=== PATIENT | male | born 1980 | race American Indian/Alaskan Native ===

== ENCOUNTER 2016-07-28 18:25 | Emergency (ER) | payer MEDICARE ==
[2016-07-28 20:51] LABS: Urine Drugs of Abuse Note Disclamer
[2016-07-28 21:02] LABS: Basophils % (Auto) 0.2 % (0.0-1.8); Eosinophils % (Auto) 0.1 % (0.0-4.3); Hematocrit 45.2 % (35.5-45.6); Mean Corpuscular HGB Conc 33 % (32-34); Mean Corpuscular Hemoglobin 29 pg (28-32); Mean Corpuscular Volume 86 fl (84-94); Platelet Count 285 K/mm3 (140-440); Red Blood Count 5.24 M/mm3 (3.65-5.03); Red Cell Distribution Width 13.8 % (13.2-15.2); White Blood Count 13.7 K/mm3 (4.5-11.0)
[2016-07-28 21:08] LABS: Bilirubin,Urine NEG (Negative); Blood,Urine NEG (Negative); Ketones,Urine TR mg/dL (Negative); Leukocyte Esterase,Urine NEG (Negative); Mucus,Urine 3+ /HPF; Nitrite,Urine NEG (Negative)
[2016-07-28 21:23] LABS: Anion Gap 19 mmol/L; BUN/Creatinine Ratio 8.46; Blood Urea Nitrogen 11 mg/dL (9-20); Calcium 9.7 mg/dL (8.4-10.2); Carbon Dioxide 26 mmol/L (22-30); Chloride 100.8 mmol/L (98-107); Glucose 88 mg/dL (75-100); Potassium 4.4 mmol/L (3.6-5.0); Sodium 141 mmol/L (137-145)
[2016-07-28] MEDS ORDERED: ATIVAN PO ONE (21:55)
[2016-07-28] MEDS ORDERED: NACL 0.9% 1000 ML 1,000 ML IV ONE (21:55)
[2016-07-28] MEDS ORDERED: DESYREL PO SCH (22:00)
--- NOTE | 2016-07-28 22:47 | Emergency Department Report ---
HPI - General Chief Complaint: Psych Time Seen by Provider: 07/28/16 20:47 - HPI HPI: The patient is a 35-year-old male with a history of bipolar disease, who presents for evaluation of mental health. The patient reports experiencing severe and constant anger for the past one day, associated with thoughts of harming his alf co-residents. The patient denies fever, headache, unexplained weight loss or weight gain, heat or cold intolerance, skin, hair, or nail changes, neuro deficits, homicidal ideations, or auditory or visual hallucinations. ED Past Medical Hx - Past Medical History Previous Medical History?: Yes Hx Psychiatric Treatment: Yes (deperssion, paranoia, bipolar) - Surgical History Past Surgical History?: No - Social History Smoking Status: Current Every Day Smoker Substance Use Type: Prescribed - Medications Home Medications: Home Medications Medication Instructions Recorded Confirmed Last Taken Type Furosemide [Lasix] 20 mg PO QDAY 02/05/15 02/05/15 Unknown History [place] Carbonate [[place] 300 mg PO BID 02/05/15 02/05/15 Unknown History Carbonate ER] [place]-3 Fatty Acids [Fish Oil] 1,000 mg PO DAILY 02/05/15 02/05/15 Unknown History Perphenazine 2 mg PO BID 02/05/15 02/05/15 Unknown History lamoTRIgine [LaMICtal (Green)] 100 mg PO DAILY 02/05/15 02/05/15 Unknown History traZODone [Desyrel] 50 mg PO QHS 02/05/15 02/05/15 Unknown History ED Review of Systems ROS: Stated complaint: NERVOUS BREAKDOWN Other details as noted in HPI Constitutional: denies: fever ENT: denies: throat or neck pain Respiratory: denies: cough, shortness of breath Cardiovascular: denies: chest pain Endocrine: denies unexplained weight loss or gain Gastrointestinal: denies: abdominal pain, nausea Genitourinary: denies: dysuria Musculoskeletal: denies: leg swelling Skin: denies: rash Neurological: denies: headache Hematological/Lymphatic: denies: easy bleeding or easy bruising Psych: reports thoughts of harming others Physical Exam - Physical Exam Vital Signs: Vital Signs 07/28/16 07/28/16 18:42 20:26 Temperature 99.1 F 98.9 F Pulse Rate 124 H 99 H Respiratory 25 H 20 Rate Blood Pressure 131/91 Blood Pressure 150/98 [Right] O2 Sat by Pulse 99 100 Oximetry Physical Exam: General: well-nourished, well-developed, no acute distress Head: Normocephalic, atraumatic Eyes: normal sclera ENT: Mucous membranes are pale and dry Neck: No neck stiffness, no cervical adenopathy Respiratory: Breath sounds equal bilaterally, no wheezing, rales, or rhonchi Cardio: S1 and S2 present, no murmurs, rubs, gallops, capillary refill is delayed Abdomen: Normoactive bowel sounds, soft abdomen, no rigidity, no guarding or rebound tenderness Musc: No pitting edema Skin: No rash Neuro: no facial drooping, normal speech Psych: Decided affect, hyperactive mood, poor insight, patient paranoid and delusional ED Course Vital Signs 07/28/16 07/28/16 18:42 20:26 Temperature 99.1 F 98.9 F Pulse Rate 124 H 99 H Respiratory 25 H 20 Rate Blood Pressure 131/91 Blood Pressure 150/98 [Right] O2 Sat by Pulse 99 100 Oximetry ED Medical Decision Making - Lab Data Result diagrams: 07/28/16 20:49 07/28/16 20:49 - Medical Decision Making The patient was seen and examined by myself. The patient is placed on a bus monitor and continuous pulse ox. On initial evaluation, the patient was found to be in no distress. Labs are obtained. The patient is given a tablet of Ativan for his agitation and 1 L normal saline fluid bolus for treatment of dehydration. Lab results are grossly unremarkable. The patient is medically clear. Mental health is consulted. Mental health evaluates the patient and agrees that the patient is exhibiting symptoms concerning for acute manic episode and is potentially a risk of harm to himself or others. A 1013 is completed. The patient will be admitted to a psychiatric facility once bed placement is obtained. Critical care attestation.: If time is entered above; I have spent that time in minutes in the direct care of this critically ill patient, excluding procedure time. ED Disposition Clinical Impression: Dehydration, Bipolar disease, manic Disposition: DC/TX PSY HOSP/PSY UNIT Is pt being admited?: No Does the pt Need Aspirin: No Condition: Fair Instructions: Bipolar Disorder (ED) Referrals: PRIMARY CARE, [Primary Care Provider] - 3-5 Days Time of Disposition: 21:46
[2016-07-28] MEDS ORDERED: MILK OF MAGNESIA PO PRN (22:48)
[2016-07-28] MEDS ORDERED: ALUM-MAG HYDROX-SIMETH 200-200-20MG/5ML PO PRN (22:48)
[2016-07-28] MEDS ORDERED: TYLENOL PO PRN (22:48)
[2016-07-29] MEDS ORDERED: LITHOBID ER PO SCH (10:00)
[2016-07-29 14:08] VITALS: BP 123/78
--- NOTE | 2016-07-29 19:25 | Consultation ---
History of Present Illness - Reason for Consult Consult date: 07/29/16 Reason for consult: Psychiatry Follow-up Requesting physician: WILMER CALDERA - Chief Complaint Chief complaint: "I am pissed off" - History of Present Psychiatric Illness The patient is a 35-year-old AA male with a history of bipolar disease, who presents for evaluation of mental health. Today patient is irritable and angry about staff members at his group taking my money out of his account. The patient is focused and fixed on the fact that staff members his gained access to his bank account. He stated that he knew what happen because he noticed that his back pack was not secure. He stated the foster care social worker at "[facility]" kept asking about questions about his payee. He called the staff member a "prostituting bitch." He stated that he can't prove that the staff member has access to his account, he stated, "I just know it." He asked could he call [facility] and report this activity. I asked why would you call [facility], why not call the police, he stated "for what." During the assessment, patient continued stated that he was "pissed off." He denies being depressed or having a erratic eating habits, but stated that he don't need much sleep. He denies recreational drug use or Etoh abuse. He was positive for barbiturates. He stated that he took a male enhancement pill recently. He denies SI/HI's and AVH's. Medications and Allergies Allergies Allergy/AdvReac Type Severity Reaction Status Date / Time ibuprofen [From Advil] Allergy Bleeding Verified 02/05/15 07:07 Home Medications Medication Instructions Recorded Confirmed Last Taken Type Furosemide [Lasix] 20 mg PO QDAY 02/05/15 02/05/15 Unknown History [place] Carbonate [[place] 300 mg PO BID 02/05/15 02/05/15 Unknown History Carbonate ER] [place]-3 Fatty Acids [Fish Oil] 1,000 mg PO DAILY 02/05/15 02/05/15 Unknown History Perphenazine 2 mg PO BID 02/05/15 02/05/15 Unknown History lamoTRIgine [LaMICtal (Green)] 100 mg PO DAILY 02/05/15 02/05/15 Unknown History traZODone [Desyrel] 50 mg PO QHS 02/05/15 02/05/15 Unknown History Active Meds: Active Medications Acetaminophen (Tylenol) 650 mg PO Q4HR PRN PRN Reason: Pain MILD(1-3)/Fever >100.5/TRINIDAD Al Hydrox/Mg Hydrox/Simethicone (Alum-Mag Hydrox-Simeth [id number]/5ml) 30 ml PO Q4HR PRN PRN Reason: Indigestion Magnesium Hydroxide (Milk Of Magnesia) 30 ml PO Q12HR PRN PRN Reason: Constipation Trazodone HCl (Desyrel) 50 mg PO QHS [facility] Last Admin: 07/28/16 23:08 Dose: 50 mg Past psychiatric history - Past Medical History Past Medical History: No medical history Past Surgical History: No surgical history - past Psychiatric treatment and history Psych: Bipolar, Depression psychiatric treatment history: Patient been to [facility]. He denies an fam psy hx. - Social History Social history: other (GED, unemployed ([employer]), Live in assisted.) Mental Status Exam - Vital signs Last Vital Signs Temp 98.6 F 07/29/16 12:00 Pulse 78 07/29/16 12:00 Resp 18 07/29/16 14:08 BP 123/78 07/29/16 12:00 Pulse Ox 98 07/29/16 14:08 - Exam Narrative exam: ROS (+) delusional, (+) disorganized MSE: Appearance: irritable, cooperative Behavior: angry, good eye contact Speech: regular rate, loud tone Mood: "I'm pissed off" Affect: blunted, mood congruent Thought Process: circumstantial Thought Content: denies SI/AVH's Cognition: A/O x3 Motor Activity Insight: poor Judgment: poor Results Result Diagrams: 07/28/16 20:49 07/28/16 20:49 Abnormal lab results 07/28/16 07/28/16 Range/Units 20:35 20:49 WBC 13.7 H (4.5-11.0) K/mm3 RBC 5.24 H (3.65-5.03) M/mm3 Seg Neutrophils % 72.6 H (40.0-70.0) % Seg Neutrophils # 9.9 H (1.8-7.7) K/mm3 Ur Specific [place] 1.031 H (1.003-1.030) All other labs normal. Assessment and Plan Assessment and plan: Impression: Unspecified Mood DO/Substance Use DO.The patient is a 35-year-old AA male with a history of bipolar disease, who presents for evaluation of mental health. Today patient is irritable and angry about staff members at his group taking my money out of his account. The patient is focused and fixed on the fact that staff members his gained access to his bank account. He stated that he knew what happen because he noticed that his back pack was not secure. He denies SI/HI's and AVH's. DD: R/O Bipolar Recommendation/Plan: Continue 1013 with pending placement to [facility]. Awaiting transport time.
== END 2016-07-29 21:30 ==
LOC: EEVIPCON 18:25 → ED 18:25
DX: F30.2 Manic episode, severe with psychotic symptoms (principal); F22 Delusional disorders; F32.9 Major depressive disorder, single episode, unspecified; F17.200 Nicotine dependence, unspecified, uncomplicated; Z88.6 Allergy status to analgesic agent
CPT/HCPCS: 36415; 80048; 80307; 81001; 85025; 96360; 99285; G0480; J7030; 80320

== ENCOUNTER 2018-05-01 20:06 | Emergency (ER) | payer MEDICARE ==
[2018-05-01 21:08] LABS: Basophils % (Auto) 0.4 % (0.0-1.8); Eosinophils # (Auto) 0.1 K/mm3 (0.0-0.4); Eosinophils % (Auto) 0.7 % (0.0-4.3); Hematocrit 40.2 % (35.5-45.6); Hemoglobin 13.7 gm/dl (11.8-15.2); Lymphocytes # (Auto) 3.3 K/mm3 (1.2-5.4); Lymphocytes % (Auto) 36.2 % (13.4-35.0); Mean Corpuscular HGB Conc 34 % (32-34); Mean Corpuscular Volume 89 fl (84-94); Monocytes # (Auto) 0.6 K/mm3 (0.0-0.8); Monocytes % (Auto) 7.1 % (0.0-7.3); Platelet Count 261 K/mm3 (140-440); Red Blood Count 4.54 M/mm3 (3.65-5.03); Red Cell Distribution Width 14.5 % (13.2-15.2)
[2018-05-01 21:17] LABS: Bilirubin,Urine NEG (Negative); Blood,Urine NEG (Negative); Color,Urine Yellow (Yellow); Mucus,Urine FEW /HPF; Protein,Urine <15 mg/dL mg/dL (Negative); Urobilinogen,Urine < 2.0 mg/dL (<2.0); WBC,Urine < 1.0 /HPF (0.0-6.0)
[2018-05-01 21:22] LABS: BUN/Creatinine Ratio 19; Blood Urea Nitrogen 13 mg/dL (9-20); Calcium 9.2 mg/dL (8.4-10.2); Hemolysis Index 7
[2018-05-01 21:25] LABS: Amphetamine Screen,Urine PRESUMPTIVE NEGATIVE; Benzodiazepines Screen,Urine PRESUMPTIVE NEGATIVE; Cannabinoid Screen,Urine PRESUMPTIVE NEGATIVE; Cocaine Screen,Urine PRESUMPTIVE NEGATIVE; Methadone Screen,Urine PRESUMPTIVE NEGATIVE; Opiate Screen,Urine PRESUMPTIVE NEGATIVE
--- NOTE | 2018-05-02 03:32 | Emergency Department Report ---
ED General Adult HPI - General Chief complaint: Psych Stated complaint: MH Time Seen by Provider: 05/02/18 03:30 Source: patient Mode of arrival: Ambulatory Limitations: No Limitations - History of Present Illness Initial comments: 37 y.o. male with history of Depression presents with complaint of needing inpatient psychiatric treatment. Patient states that he has no auditory hallucinations at the current time. Patient states that he continued to think of feeling suicidal. Patient does not describe any active plan. Patient denies any homicidal ideation. Patient states he's been a lot of family issues as well. Patient also during the conversation begins to speak of delusions regarding his job and his living situation. - Related Data Home Medications Medication Instructions Recorded Confirmed Last Taken Citalopram [celeXA] 10 mg PO HS 05/02/18 05/02/18 Unknown Multivitamin [Multiple Vitamins] 1 tab PO DAILY 05/02/18 05/02/18 Unknown Quetiapine Fumarate [Seroquel] 2 tab PO HS 05/02/18 05/02/18 Unknown lamoTRIgine [Lamictal] 1 tab PO BID 05/02/18 05/02/18 Unknown Allergies Allergy/AdvReac Type Severity Reaction Status Date / Time ibuprofen [From Advil] Allergy Bleeding Verified 02/05/15 07:07 ED Review of Systems ROS: Stated complaint: MH Other details as noted in HPI Constitutional: denies: chills, fever Eyes: denies: eye pain, eye discharge, vision change ENT: denies: ear pain, throat pain Respiratory: denies: cough, shortness of breath, wheezing Cardiovascular: denies: chest pain, palpitations Endocrine: no symptoms reported Gastrointestinal: denies: abdominal pain, nausea, diarrhea Genitourinary: denies: urgency, dysuria Musculoskeletal: denies: back pain, joint swelling, arthralgia Skin: denies: rash, lesions Neurological: denies: headache, weakness, paresthesias Psychiatric: suicidal thoughts, other (delusional thinking). denies: anxiety, depression Hematological/Lymphatic: denies: easy bleeding, easy bruising ED Past Medical Hx - Past Medical History Hx Psychiatric Treatment: Yes (deperssion, paranoia, bipolar) - Surgical History Past Surgical History?: No - Social History Smoking Status: Current Every Day Smoker - Medications Home Medications: Home Medications Medication Instructions Recorded Confirmed Last Taken Type Citalopram [celeXA] 10 mg PO HS 05/02/18 05/02/18 Unknown History Multivitamin [Multiple Vitamins] 1 tab PO DAILY 05/02/18 05/02/18 Unknown His tory Quetiapine Fumarate [Seroquel] 2 tab PO HS 05/02/18 05/02/18 Unknown History lamoTRIgine [Lamictal] 1 tab PO BID 05/02/18 05/02/18 Unknown History ED Physical Exam - General Limitations: No Limitations General appearance: alert, in no apparent distress, other (appears to be responding to internal stimuli) - Head Head exam: Present: atraumatic, normocephalic - Eye Eye exam: Present: normal appearance - ENT ENT exam: Present: mucous membranes moist - Neck Neck exam: Present: normal inspection - Respiratory Respiratory exam: Present: normal lung sounds bilaterally. Absent: respiratory distress - Cardiovascular Cardiovascular Exam: Present: regular rate, normal rhythm. Absent: systolic murmur, diastolic murmur, rubs, gallop - GI/Abdominal GI/Abdominal exam: Present: soft, normal bowel sounds - Rectal Rectal exam: Present: deferred - Extremities Exam Extremities exam: Present: normal inspection - Back Exam Back exam: Present: normal inspection - Neurological Exam Neurological exam: Present: alert, oriented X3 - Psychiatric Psychiatric exam: Present: suicidal ideation, other (animated) - Skin Skin exam: Present: warm, dry, intact, normal color. Absent: rash ED Course Vital Signs 05/01/18 05/01/18 05/02/18 20:27 20:40 03:05 Temperature 98.1 F 98.1 F 98.3 F Pulse Rate 95 H 88 80 Respiratory 18 16 16 Rate Blood Pressure 131/70 131/70 Blood Pressure 118/69 [Left] O2 Sat by Pulse 95 98 98 Oximetry ED Medical Decision Making - Lab Data Result diagrams: 05/01/18 20:52 05/02/18 04:04 - Medical Decision Making Patient is medically clear. Patient placed on a 1013. Patient currently awaiting potential transfer to inpatient psychiatric facility. - Differential Diagnosis polysubstance abuse; acute psychosis; electrolyte abnormality; anemia Critical care attestation.: If time is entered above; I have spent that time in minutes in the direct care of this critically ill patient, excluding procedure time. ED Disposition Clinical Impression: Psychosis Disposition: DC/TX-65 PSY HOSP/PSY UNIT Is pt being admited?: No Condition: Stable Referrals: SEVERINO BHAGAT [Primary Care Provider] - 3-5 Days Time of Disposition: 06:56 Print Language: SERBIAN
[2018-05-02 04:01] LABS: Bilirubin,Urine NEG (Negative); Blood,Urine NEG (Negative); Color,Urine Yellow (Yellow); Mucus,Urine FEW /HPF; Protein,Urine <15 mg/dL mg/dL (Negative); Urobilinogen,Urine < 2.0 mg/dL (<2.0)
[2018-05-02 04:09] LABS: Amphetamine Screen,Urine PRESUMPTIVE NEGATIVE; Benzodiazepines Screen,Urine PRESUMPTIVE NEGATIVE; Cannabinoid Screen,Urine PRESUMPTIVE NEGATIVE; Cocaine Screen,Urine PRESUMPTIVE NEGATIVE; Methadone Screen,Urine PRESUMPTIVE NEGATIVE; Opiate Screen,Urine PRESUMPTIVE NEGATIVE
[2018-05-02 04:46] LABS: BUN/Creatinine Ratio 20; Blood Urea Nitrogen 12 mg/dL (9-20); Calcium 8.9 mg/dL (8.4-10.2); Hemolysis Index 186
[2018-05-02 05:09] LABS: Alanine Aminotransferase 79 units/L (7-56)
[2018-05-02 13:11] VITALS: BP 106/67
== END 2018-05-02 11:55 ==
LOC: ED 20:06
DX: F29 Unspecified psychosis not due to a substance or known physiological condition (principal); R45.851 Suicidal ideations; F32.9 Major depressive disorder, single episode, unspecified; F31.9 Bipolar disorder, unspecified; F17.200 Nicotine dependence, unspecified, uncomplicated
CPT/HCPCS: 36415; 80048; 80053; 80307; 81001; 85025; 99285; G0480; 80320

== ENCOUNTER 2018-05-15 22:21 | Emergency (ER) | payer MEDICARE ==
[2018-05-15 23:27] LABS: Basophils # (Auto) 0.1 K/mm3 (0.0-0.1); Basophils % (Auto) 0.6 % (0.0-1.8); Eosinophils # (Auto) 0.1 K/mm3 (0.0-0.4); Eosinophils % (Auto) 1.2 % (0.0-4.3); Hematocrit 42.1 % (35.5-45.6); Hemoglobin 14.4 gm/dl (11.8-15.2); Lymphocytes # (Auto) 3.5 K/mm3 (1.2-5.4); Lymphocytes % (Auto) 34.6 % (13.4-35.0); Mean Corpuscular HGB Conc 34 % (32-34); Mean Corpuscular Volume 88 fl (84-94); Monocytes # (Auto) 0.9 K/mm3 (0.0-0.8); Monocytes % (Auto) 8.7 % (0.0-7.3); Platelet Count 264 K/mm3 (140-440); Red Blood Count 4.81 M/mm3 (3.65-5.03); Red Cell Distribution Width 14.4 % (13.2-15.2)
[2018-05-15 23:42] LABS: BUN/Creatinine Ratio 11; Blood Urea Nitrogen 10 mg/dL (9-20); Calcium 9.7 mg/dL (8.4-10.2); Hemolysis Index 18
[2018-05-16 01:30] LABS: Bilirubin,Urine Negative (Negative); Blood,Urine Negative (Negative); Color,Urine Yellow (Yellow); Protein,Urine <15 mg/dL mg/dL (Negative)
[2018-05-16 01:31] LABS: Amphetamine Screen,Urine PRESUMPTIVE NEGATIVE; Bacteria,Urine 1+ /HPF (Negative); Benzodiazepines Screen,Urine PRESUMPTIVE NEGATIVE; Cannabinoid Screen,Urine PRESUMPTIVE NEGATIVE; Cocaine Screen,Urine PRESUMPTIVE NEGATIVE; Methadone Screen,Urine PRESUMPTIVE NEGATIVE; Opiate Screen,Urine PRESUMPTIVE NEGATIVE
[2018-05-16] MEDS ORDERED: NACL 0.9% 1000 ML 1,000 ML IV ONE (06:20)
--- NOTE | 2018-05-16 06:22 | Emergency Department Report ---
ED Psych HPI - General Chief Complaint: Psych Stated Complaint: MEDICAL CLEARANCE Time Seen by Provider: 05/16/18 06:19 Source: patient Mode of arrival: Ambulatory Limitations: No Limitations - History of Present Illness Initial Comments: Is 37-year-old male presents emergency room for medical clearance to return to the [facility]. Patient denies depression. Patient denies anxiety. Patient denies suicidal and homicidal ideations. Patient denies chest pain. Patient denies shortness of breath. Patient denies physical complaints. He states he i s compliant with all his medications. Patient states he just wants to go back to [facility]. -: Gradual Associated Psychiatric Symptoms: none History of same: Yes Quality: constant Improves With: medication, therapy Worsens With: none Associated Symptoms: denies other symptoms. denies: confusion, headache, shortness of breath, nausea, vomiting, syncope, insomnia Treatments Prior to Arrival: none - Related Data Home Medications Medication Instructions Recorded Confirmed Last Taken Citalopram [celeXA] 10 mg PO HS 05/02/18 05/02/18 Unknown Multivitamin [Multiple Vitamins] 1 tab PO DAILY 05/02/18 05/02/18 Unknown Quetiapine Fumarate [Seroquel] 2 tab PO HS 05/02/18 05/02/18 Unknown lamoTRIgine [Lamictal] 1 tab PO BID 05/02/18 05/02/18 Unknown Allergies Allergy/AdvReac Type Severity Reaction Status Date / Time ibuprofen [From Advil] Allergy Bleeding Verified 02/05/15 07:07 ED Review of Systems ROS: Stated complaint: MEDICAL CLEARANCE Other details as noted in HPI Constitutional: denies: chills, fever Eyes: denies: eye pain, eye discharge, vision change ENT: denies: ear pain, throat pain Respiratory: denies: cough, shortness of breath, wheezing Cardiovascular: denies: chest pain, palpitations Endocrine: no symptoms reported Gastrointestinal: denies: abdominal pain, nausea, diarrhea Genitourinary: denies: urgency, dysuria Musculoskeletal: denies: back pain, joint swelling, arthralgia Skin: denies: rash, lesions Neurological: denies: headache, weakness, paresthesias Psychiatric: denies: anxiety, depression, auditory hallucinations, visual hallucinations, homicidal thoughts, suicidal thoughts Hematological/Lymphatic: denies: easy bleeding, easy bruising ED Past Medical Hx - Past Medical History Previous Medical History?: Yes Hx Psychiatric Treatment: Yes (deperssion, paranoia, bipolar) - Surgical History Past Surgical History?: No - Family History Family history: no significant - Social History Smoking Status: Never Smoker Substance Use Type: None - Medications Home Medications: Home Medications Medication Instructions Recorded Confirmed Last Taken Type Citalopram [celeXA] 10 mg PO HS 05/02/18 05/02/18 Unknown History Multivitamin [Multiple Vitamins] 1 tab PO DAILY 05/02/18 05/02/18 Unknown History Quetiapine Fumarate [Seroquel] 2 tab PO HS 05/02/18 05/02/18 Unknown History lamoTRIgine [Lamictal] 1 tab PO BID 05/02/18 05/02/18 Unknown History ED Physical Exam - General Limitations: No Limitations General appearance: alert, in no apparent distress - Head Head exam: Present: atraumatic, normocephalic - Eye Eye exam: Present: normal appearance - ENT ENT exam: Present: mucous membranes moist - Neck Neck exam: Present: normal inspection - Respiratory Respiratory exam: Present: normal lung sounds bilaterally. Absent: respiratory distress - Cardiovascular Cardiovascular Exam: Present: regular rate, normal rhythm. Absent: systolic murmur, diastolic murmur, rubs, gallop - GI/Abdominal GI/Abdominal exam: Present: soft, normal bowel sounds - Rectal Rectal exam: Present: deferred - Extremities Exam Extremities exam: Present: normal inspection - Back Exam Back exam: Present: normal inspection - Neurological Exam Neurological exam: Present: alert, oriented X3 - Psychiatric Psychiatric exam: Present: normal affect, normal mood - Skin Skin exam: Present: warm, dry, intact, normal color. Absent: rash ED Course Vital Signs 05/15/18 05/16/18 05/16/18 23:04 05:02 06:00 Temperature 97.7 F 97.6 F 98.1 F Pulse Rate 78 68 76 Respiratory 18 18 16 Rate Blood Pressure 139/75 129/79 Blood Pressure 131/78 [Left] O2 Sat by Pulse 98 100 Oximetry 05/16/18 05/16/18 09:28 10:01 Temperature 97.9 F 98.7 F Pulse Rate 71 86 Respiratory 18 16 Rate Blood Pressure Blood Pressure 131/85 136/72 [Left] O2 Sat by Pulse 99 98 Oximetry - Reevaluation(s) Reevaluation #1: Mental health saw patient and [facility] waiting on patient. Patient just needs to be medically cleared and discharged back to [facility]. Discussed case with evaluated. 05/16/18 06:45 Discussed all results with patient. Patient's CK level came back elevated. Patient will be given a bolus of fluids and a recheck CK. Patient is not having any muscle pains.. 05/16/18 06:49 - Patient's CK came back lower after the saline bolus. Patient's CK secondary to inadequate oral hydration or his psychiatric medications. Patient at this time is medically cleared for admission to [facility] order to continue his psychiatric treatment. Patient is also psychiatrically stable and does not warrant a 1013 or acute inpatient psychiatric admission. Patient will be discharged in order to return to [facility] to continue his psychiatric treatment. Patient is stable for discharge. Patient given discharge instructions. Patient voiced understanding of all results and discharge instructions. 05/16/18 10:05 ED Medical Decision Making - Lab Data Result diagrams: 05/15/18 23:16 05/15/18 23:16 - Medical Decision Making Patient is a 37-year-old male that presents emergency department for medical clearance to return to [facility]. Patient is medically cleared. His labs are unremarkable except for elevated CK and a symptomatically by area. Patient denies any pain or difficulties urinating. Patient's UA is consistent with a sy mptomatically pyuria does not require antibiotic therapy. Patient's CK secondary to his psychiatric medications or dehydration. Patient given a saline bolus and CK dropped By approximately 200 points. Patient instructed to increase water. Patient given discharge instructions. Patient is medically cleared to go over to [facility] to continue his psychiatric treatment.. - Differential Diagnosis O clearance for psychiatric admission. Critical care attestation.: If time is entered above; I have spent that time in minutes in the direct care of this critically ill patient, excluding procedure time. ED Disposition Clinical Impression: Medical clearance for psychiatric admission, Elevated CK Disposition: DC/TX-70 ANOTHER TYPE HLTHCARE Is pt being admited?: No Does the pt Need Aspirin: No Condition: Stable Instructions: Medical Clearance for Psychiatric Care (ED) Additional Instructions: Patient increase water. Patient to follow up with primary care in 2-3 days. Patient to be discharged from ER in go straight to [facility]. Patient to continue all medications. Referrals: PRECIOUS RUSH MD [Primary Care Provider] - 2-3 Days Time of Disposition: 09:55
[2018-05-16 10:09] VITALS: BP 136/72
== END 2018-05-16 10:01 | disposition other institution (70) ==
LOC: ED 22:21
DX: Z00.8 Encounter for other general examination (principal); R74.8 Abnormal levels of other serum enzymes; F32.9 Major depressive disorder, single episode, unspecified; F31.9 Bipolar disorder, unspecified; Z88.6 Allergy status to analgesic agent
CPT/HCPCS: 36415; 80048; 80307; 81001; 82550; 85025; 99284; G0480; J7030; 80320